=== PATIENT | female | born 1980 | race Caucasian/White ===

== ENCOUNTER 2016-10-08 06:25 | Inpatient (IN) | payer OTHER ==
[~2016-10-08 06:25] MED LIST: Clindamycin 900 MG IVPREMIX(* 900 MG/50 ML SDV IV SCH
[2016-10-08] MEDS ORDERED: Clindamycin 900 MG IVPREMIX(* 900 MG/50 ML SDV IV ONE (07:30)
[2016-10-08] MEDS ORDERED: Sodium Citrate/Citric Acid* 15 ML UDC ONE (07:52)
[2016-10-08] MEDS ORDERED: Morphine PF AMP (0.5MG/ML)* 5 MG/10 ML AMP ONE (07:55)
[2016-10-08] MEDS ORDERED: OXYTOCIN* 10 UNITS/ML 1 ML VIAL ONE (09:12)
[2016-10-08] MEDS ORDERED: Acetaminophen TAB* 325 MG PO PRN (09:20)
[2016-10-08] MEDS ORDERED: Witch Hazel PAD* JAR TOPICAL PRN (09:20)
[2016-10-08] MEDS ORDERED: Glycerin ADULT SUPP PR PRN (09:20)
[2016-10-08] MEDS ORDERED: oxyCODONE/Acetamin 5/325 MG* TAB PO PRN (09:20)
[2016-10-08] MEDS ORDERED: Zolpidem TAB* 5 MG PO PRN (09:20)
[2016-10-08] MEDS ORDERED: Dibucaine 1% 28.35 GM TUBE PR PRN (09:20)
[2016-10-08] MEDS ORDERED: Nalbuphine* 20 MG/ML 1 ML VIAL IV PRN (09:44)
[2016-10-08] MEDS ORDERED: Naloxone* 0.4 MG/ML 1 ML VIAL IV PRN (09:44)
[2016-10-08] MEDS ORDERED: Ondansetron INJ* 2 MG/ML VIAL IV PRN (09:44)
[2016-10-08] MEDS: oxyCODONE/Acetamin 5/325 MG* TAB PO PRN ×3 (11:33→22:05)
[2016-10-08] MEDS: Simethicone CHEW TAB* 80 MG PO SCH ×3 (11:34→22:05)
[2016-10-08] MEDS: Ibuprofen TAB* 600 MG PO PRN ×2 (11:34→19:02)
[2016-10-08] MEDS: Docusate CAP* 100 MG PO SCH ×2 (16:24→22:05)
[2016-10-08] MEDS ORDERED: Clindamycin 900 MG IVPREMIX(* 900 MG/50 ML SDV IV SCH (17:08)
[2016-10-09] MEDS: Ibuprofen TAB* 600 MG PO PRN ×4 (01:07→21:17)
[2016-10-09] MEDS ORDERED: diPHENhydraMINE PO* 50 MG PO PRN (01:23)
[2016-10-09] MEDS: oxyCODONE/Acetamin 5/325 MG* TAB PO PRN ×6 (02:05→22:46)
[2016-10-09 06:55] LABS: Hematocrit 34 % (35-47); Hemoglobin 11.6 g/dl (12.0-16.0); Mean Corpuscular HGB Conc 34 g/dl (31-36); Mean Corpuscular Hemoglobin 30 pg (27-31); Mean Corpuscular Volume 86 fL (80-97); Mean Platelet Volume 8 um3 (7.4-10.4); Red Blood Count 3.93 10^6/ul (4.0-5.4); Red Cell Distribution Width 14 % (10.5-15); White Blood Count 8.3 10^3/ul (3.5-10.8)
--- NOTE | 2016-10-09 07:15 | OP ---
CC: John Subramanian MD, [employer] OPERATIVE REPORT: DATE OF OPERATION: 10/08/16 DATE OF : 82 SURGEON: Adolfo Weber MD ASSISTANTS: John Subramanian MD and Kelsey Solis CM, licensed optical dispenser. ANESTHESIA: Spinal. PRE-OPERATIVE DIAGNOSIS: at 39 weeks with a prior section, scheduled se ction. POST-OPERATIVE DIAGNOSIS: at 39 weeks with a prior section, scheduled s ection. OPERATIVE PROCEDURE: Repeat low-transverse section with vacuum assistance. ESTIMATED BLOOD LOSS: 600 cc. URINE OUTPUT: 150 cc of clear urine. IV FLUIDS: She received 1100 cc of IV crystalloid fluid. FINDINGS ON DELIVERY: A viable male weighing 8 pounds 13 ounces over clear fluid with ' s of 9 and 9. The placenta was grossly intact with a 3-vessel cord noted. The uterus, adnexa, rohan l, and bladder were all within normal limits and there were no complications. DESCRIPTION OF PROCEDURE: The patient was taken to the operating room, where she was identified. S he was placed on the operating table, where spinal anesthetic was obtained without difficulty. She was then placed in the supine position with a leftward tilt, prepped and draped in normal sterile fa shion. A Pfannenstiel skin incision was made with a knife and carried through to the underlying lay er of fascia. The fascia was nicked in the midline and extended laterally with curved Vega scissors , grasped superiorly and inferiorly with Leonid clamps and dissected off sharply from the rectus mus renu. The rectus muscle was in the midline bluntly. The peritoneum was identified, graspe d with pickups and entered sharply with Metzenbaum scissors and extended inferiorly, superiorly, sha rply. A bladder blade was inserted into the patient's abdomen. A bladder flap was created using Me tzenbaum scissors, over which a bladder blade was then re-inserted. A low transverse uterine incisi on was made with the knife, extended laterally with bandage scissors. Amniotic sac was ruptured and the 's head was then grasped after the incision. Then, vacuum was placed on the baby's head and the was then delivered. The vacuum was removed. The nose and mouth were suctioned at th e incision site. The rest of the 's body was then delivered. The cord was clamped and cut an d the infant was handed off to awaiting signals intelligence superintendent. Cord bloods were obtained. The placenta was removed manually. The uterus was then exteriorized, cleared of all clot and debris using moist lapa rotomy sponges. The uterine incision was then closed using 0 Polysorb suture in a running locked fa shion with a second imbricating layer of 0 Polysorb suture. The uterine incision was noted to be he mostatic. The uterus was then returned to the patient's abdomen. The gutters were then cleared of a ll clot and debris using moist laparotomy sponges. The sponges were removed from the patient's abdo men as well as all the instruments. The peritoneum was then closed using 3-0 Polysorb suture in a r unning fashion. The fascia was closed using 0 Polysorb suture in a running fashion and the skin was closed with a 4-0 monofilament stitch. The patient tolerated the procedure well. Sponge, lap, and needle counts were correct x2. She was then transferred to recovery room area in stable condition. [id number]/[facility] #: [id number]
[2016-10-09] MEDS: Simethicone CHEW TAB* 80 MG PO SCH ×4 (08:39→21:17)
[2016-10-09] MEDS: Docusate CAP* 100 MG PO SCH ×3 (08:39→21:17)
[2016-10-09] MEDS ORDERED: Ferrous Gluconate TAB* 324 MG TAB PO SCH (09:00)
[2016-10-10] MEDS: oxyCODONE/Acetamin 5/325 MG* TAB PO PRN ×4 (02:39→20:53)
[2016-10-10] MEDS: Ibuprofen TAB* 600 MG PO PRN ×4 (03:59→23:41)
[2016-10-10] MEDS: Docusate CAP* 100 MG PO SCH ×3 (08:05→20:53)
[2016-10-10] MEDS: Simethicone CHEW TAB* 80 MG PO SCH ×4 (08:05→20:53)
[2016-10-11] MEDS: oxyCODONE/Acetamin 5/325 MG* TAB PO PRN ×3 (01:03→09:34)
[2016-10-11 07:29] VITALS: BP 134/57
[2016-10-11] MEDS: Ibuprofen TAB* 600 MG PO PRN (07:32)
[2016-10-11] MEDS: Docusate CAP* 100 MG PO SCH (09:34)
[2016-10-11] MEDS: Simethicone CHEW TAB* 80 MG PO SCH (09:35)
== END 2016-10-11 11:52 | disposition home or self-care (01) | DRG 540 ==
LOC: MCHOB 06:25
PROVIDERS: ADMIT Obstetrics & Gynecology; ATTEND Obstetrics & Gynecology
PROC: 4A1HXCZ Monitoring of Products of Conception, Cardiac Rate, External Approach (ICD-10-PCS; 2016-10-08)
PROC: 10D00Z1 Extraction of Products of Conception, Low, Open Approach (ICD-10-PCS; principal; 2016-10-08 07:45)
DX: O34.211 Maternal care for low transverse scar from previous cesarean delivery (principal); Z88.0 Allergy status to penicillin; Z3A.39 39 weeks gestation of pregnancy; Z37.0 Single live birth
CPT/HCPCS: 36415; 85025; A9270-GY; J1580; J2405; J2590